=== PATIENT | female | born 1950 | race Caucasian/White ===

== ENCOUNTER → 2017-03-26 11:13 | Outpatient (CLI) | payer MEDICARE, OTHER | END | disposition home or self-care (01) | LOC: D.MRI 11:13 | DX: R53.1 Weakness (principal); R20.2 Paresthesia of skin; M54.16 Radiculopathy, lumbar region ==

== ENCOUNTER → 2017-09-16 12:25 | Outpatient (CLI) | payer MEDICARE, OTHER ==
--- NOTE | ~2017-09-16 | EC ---
PATIENT:SHANA WILLIS DATE OF SERVICE: 09/16/17 SEX: F MEDICAL RECORD: [id number] DATE OF : [birth year] LOCATION:[facility] AGE OF PATIENT: 66 ADMISSION DATE: 09/16/17 REFERRING PHYSICIAN: INTERPRETING PHYSICIAN: HADLEY HUGHES MD ECHOCARDIOGRAM REPORT ECHO CHARGES 4 ECHO COMPLETE Date: 09/16 CLINICAL DIAGNOSIS: ABNORMAL EKG/HTN ECHOCARDIOGRAPHIC MEASUREMENTS (adult normal given) AC root (d.<3.7cm) 2.8 cm LV Septum d (<1.2 cm> 1.6 cm Valve Excursion 1.6 cm LV Septum (systole) 1.9 cm Left Atria (s.<4.0cm> 4.6 cm LVPW d(<1.2cm) 1.4 cm RV (d.<2.3cm) 2.4 cm LVPW (sytole) 2.2 cm LV diastole(<5.6CM) 5.1 cm MV E-F(>70mm/sec) cm LV systole 2.5 cm LVOT Diameter 1.7 cm MV exc.(>10mm) cm Est.ejection fraction (50-75%) % DOPPLER: LVIT cm/sec A 73.0 cm/sec E 113 cm/sec LA cm/sec RVSP 28.1 mmHg LVOT 145 cm/sec AOP1/2T m/s Asc. Ao 153 cm/sec RVOT 87.0 cm/sec RA cm/sec PA 115 cm/sec AV Gradient Peak 9.3 mmHg AV Mean 5.9 mmHg AV Area 2.1 cm MV Gradient Peak 5.8 mmHg MV Mean 2.3 mmHg MV Area cm COMMENTS: Radiation Protection Technician: Manuel RANGELOE [employer]munition [employer] I Laborer: Collin Hughes TAPE# PACS Pericardial Effusion N DATE OF SERVICE: PROCEDURE: Transthoracic echocardiogram. FINDINGS: 1. Left ventricle has moderate concentric left ventricular hypertrophy. Inflow characteristics are preserved. 2. The ejection fraction is 65% to 70% and actually hyperdynamic. 3. The left atrium is moderately dilated. 4. The mitral valve appears to be of normal function without significant ECHOCARDIOGRAM REPORT [id number] SHANA WILLIS evidence of mitral regurgitation. 5. The aortic valve is normal with possible trace aortic insufficiency. 6. Tricuspid valve has trace tricuspid regurgitation with normal right ventricular systolic pressures. 7. The right ventricle is normal in size, normal function. 8. The right atrium is normal size, normal function. CONCLUSION: The patient has evidence of hypertensive heart disease with left ventricular hypertrophy, otherwise normal echo for the patient's stated age. TRANSINT:[id number] Voice Confirmation ID: [id number] DOCUMENT ID: [id number] HADLEY HUGHES MD at 0942 CC: [id number] DICTATION DATE: 09/17/17 1006 [employer] ARCHITECT: 09/17/17 1204 DEP CLI 09/16/17 [facility] [address] [place] [address]
[~2017-09-16 12:25] MED LIST: AMBIEN10 MG PO; ASPIRIN EC81 M1 PO; DIOVAN HCT 80-11 TAB PO; NORVASC5 MG PO; SUPER B COMPLE150 MG PO; ULTRAM50 MG PO
== END | disposition home or self-care (01) ==
LOC: D.ECHO 12:25
DX: R94.31 Abnormal electrocardiogram [ECG] [EKG] (principal); I10 Essential (primary) hypertension; G47.10 Hypersomnia, unspecified

== ENCOUNTER → 2017-09-23 16:06 | Outpatient (CLI) | payer MEDICARE, OTHER ==
[2017-09-23 16:55] LABS: THYROID STIMULATING HORMONE 1.15 uIU/mL (0.36-3.74)
== END | disposition home or self-care (01) ==
LOC: D.LABREF 16:06
PROVIDERS: Internal Medicine Cardiovascular Disease
DX: R00.2 Palpitations (principal)

== ENCOUNTER 2018-01-22 05:30 | Day surgery (SDC) | payer MEDICARE, OTHER ==
[2018-01-21 14:18] LABS: HEMATOCRIT 37.3 % (36.0-48.0); HEMOGLOBIN 12.5 g/dL (12-16); MCH 30.9 pg (26.0-34.0); MCHC 33.5 g/dL (31.0-37.0); MCV 92.1 fL (80.0-100.0); MEAN PLATELET VOLUME 9.8 fL (7.4-10.4); RBC 4.05 10x6/uL (4.00-5.40); RDW 12.9 % (11.5-14.5); WBC 7.3 10x3/uL (4.8-10.8)
[~2018-01-22] VITALS: Ht 170.2 cm; Wt 81.6 kg
--- NOTE | ~2018-01-22 | OP ---
PATIENT NAME: SHANA WILLIS MEDICAL RECORD: [id number] :52 LOCATION:[facility] ADMISSION DATE: SURGEON: SANTI JORDAN MD DATE OF OPERATION: 01/22/2018 PREOPERATIVE DIAGNOSES: Lumbar spinal stenosis and disc protrusion, L4-L5, left. POSTOPERATIVE DIAGNOSES: Synovial cyst L4-L5 on the left with hypertrophied ligamentum flavum causing foraminal stenosis, lumbar spinal stenosis, L4-L5, left; disc protrusion L4-L5, left. PROCEDURES: Lumbar laminotomy, medial facetectomy and foraminotomy at L4-L5 on the left. DESCRIPTION AND TECHNIQUE: After induction of general endotracheal anesthesia, the patient was rolled prone on Prabhjot frame. Lumbar spine was prepped and draped in usual sterile fashion. Fluoroscopic x-ray and spinal needle localized the L4-L5 interspace on the left side. A stab incision was created with a #11 blade. Series of dilators were used to advance a METRx retractor to the L4-L5 interspace on the left side. The level was confirmed with fluoroscopic x-ray. A microscope and Midas-Yovanny drill were used to perform laminotomy, medial facetectomy and foraminotomy at L4-L5 on the left. Hypertrophied ligamentum flavum was removed with Cloward rongeurs. There appeared to be a synovial cyst incorporated within the ligamentum flavum, this was removed as well. Following this, the L5 nerve root was decompressed as well. The disc space was inspected and found to have a protrusion, but excellent decompression was accomplished by removal of the ligamentum flavum. Therefore, no discectomy was performed. Meticulous hemostasis was maintained throughout the wound. The wound was irrigated with copious amounts of Ancef irrigant solution. The fascia was closed with 2-0 Vicryl suture, the subdermal layer was closed with 3-0 Vicryl suture. The skin was closed with kwesi. A sterile dressing was applied to the wound. The patient was awakened in good condition, taken to recovery. All counts were reported as correct. Estimated blood loss was minimal. TRANSINT:[id number] Voice Confirmation ID: [id number] DOCUMENT ID: [id number] SANTI JORDAN MD at 1104 CC: [id number] DICTATION DATE: 01/22/18 1323 [employer] SPECIALIST: 01/22/18 1351 [facility] [place] 01/22/18 [facility] [address] [facility] [place] [address]
[2018-01-22 07:38] VITALS: BP 149/68; Ht 170.2 cm; Wt 81.6 kg
[2018-01-22] MEDS ORDERED: TRAMADOL HCL E100 M1 PO (10:28)
== END 2018-01-22 12:00 | disposition home or self-care (01) ==
LOC: D.OPS 05:30 → D.PAN 07:30 → D.OPS 07:30
PROVIDERS: Anesthesiology
DX: M48.061 Spinal stenosis, lumbar region without neurogenic claudication (principal); M51.26 Other intervertebral disc displacement, lumbar region; M71.38 Other bursal cyst, other site; Z01.812 Encounter for preprocedural laboratory examination

== ENCOUNTER 2018-10-08 09:00 | Outpatient (CLI) | payer MEDICARE, OTHER ==
[2018-01-22 07:38] VITALS: BMI 28.2
[~2018-10-08 09:00] MED LIST changes: +TRAMADOL HCL E100 M1 PO
== END 2018-10-08 10:00 | disposition home or self-care (01) ==
LOC: D.MAMMO 09:00
PROVIDERS: ATTEND Family Medicine
DX: Z12.31 Encounter for screening mammogram for malignant neoplasm of breast (principal)

== ENCOUNTER → 2018-10-08 09:36 | Outpatient (CLI) | payer MEDICARE, OTHER ==
[2018-01-22 07:38] VITALS: BMI 28.2
== END | disposition home or self-care (01) ==
LOC: D.MRI 09:36
PROVIDERS: ATTEND Family Medicine
DX: M54.10 Radiculopathy, site unspecified (principal)

== ENCOUNTER → 2019-01-05 12:36 | Outpatient (CLI) | payer MEDICARE, OTHER ==
[2018-01-22 07:38] VITALS: BMI 28.2
== END | disposition home or self-care (01) ==
LOC: D.MRI 12:36
PROVIDERS: ATTEND Orthopaedic Surgery
DX: S83.242A Other tear of medial meniscus, current injury, left knee, initial encounter (principal)

== ENCOUNTER → 2019-02-23 09:57 | Outpatient (CLI) | payer MEDICARE, OTHER ==
[2018-01-22 07:38] VITALS: BMI 28.2
== END | disposition home or self-care (01) ==
LOC: D.RAD 09:57
PROVIDERS: ATTEND Family Medicine
DX: M54.16 Radiculopathy, lumbar region (principal)

== ENCOUNTER → 2020-02-02 10:32 | Outpatient (CLI) | payer MEDICARE, OTHER ==
[2018-01-22 07:38] VITALS: BMI 28.2
--- NOTE | 2020-02-04 11:00 | EC ---
PATIENT:SHANA WILLIS DATE OF SERVICE: 02/02/20 SEX: F MEDICAL RECORD: [id number] DATE OF : [birth year] LOCATION:[facility] AGE OF PATIENT: 69 ADMISSION DATE: 02/02/20 REFERRING PHYSICIAN: INTERPRETING PHYSICIAN: BALWINDER FINLEY MD ECHOCARDIOGRAM REPORT ECHO CHARGES 4 ECHO COMPLETE Date: 02/02/20 CLINICAL DIAGNOSIS: HTN/HEART MURMUR ECHOCARDIOGRAPHIC MEASUREMENTS (adult normal given) AC root (d.<3.7cm) 3.0 cm LV Septum d (<1.2 cm> 1.3 cm Valve Excursion 1.5 cm LV Septum (systole) 1.5 cm Left Atria (s.<4.0cm> 4.6 cm LVPW d(<1.2cm) 1.5 cm RV (d.<2.3cm) 2.8 cm LVPW (sytole) 1.7 cm LV diastole(<5.6CM) 5.6 cm MV E-F(>70mm/sec) cm LV systole 3.9 cm LVOT Diameter 1.9 cm MV exc.(>10mm) 2.1 cm Est.ejection fraction (50-75%) % DOPPLER: LVIT cm/sec A 84.0 cm/sec E 72.0 cm/sec LA cm/sec RVSP 31 mmHg LVOT 118 cm/sec AOP1/2T m/s Asc. Ao 156 cm/sec RVOT 100 cm/sec RA cm/sec PA 115 cm/sec AV Gradient Peak 9.79 mmHg AV Mean 5.74 mmHg AV Area 2.0 cm MV Gradient Peak 3.87 mmHg MV Mean 1.64 mmHg MV Area cm COMMENTS: Parachutist/Combatant Diver Qualified: 2 DARIN GRANDE Reporter Anchor: 3 Dr. Smiley TAPE# PACS Pericardial Effusion N DATE OF SERVICE: Adequate 2D, color-flow imaging, spectral Doppler, and M-Mode LVH is present. LV internal dimension is normal. Wall motion is normal. EF is greater than or equal to 55%. Aortic valve is tricuspid. No evidence of stenosis. There is trace AI with color-flow imaging. Left atrium is dilated at 4.6 cm. Mitral valve shows no prolapse. Trace MR. Right-sided chambers are grossly normal. Mild TR. ECHOCARDIOGRAM REPORT [id number] SHANA WILLIS TRANSINT:[id number] Voice Confirmation ID: [id number] DOCUMENT ID: [id number] BALWINDER FINLEY MD at 1100 CC: [id number] DICTATION DATE: 02/03/20 0843 LEGAL ADVISER: 02/03/20 1315 DEP CLI 02/02/20 [place] [id number] [place] [id number]
== END | disposition home or self-care (01) ==
LOC: D.HCCECHO 10:30
PROVIDERS: ATTEND Internal Medicine Interventional Cardiology
DX: I10 Essential (primary) hypertension (principal)

== ENCOUNTER 2020-11-02 10:15 | Outpatient (CLI) | payer MEDICARE, OTHER ==
[2020-04-28 12:36] VITALS: BMI 27.4
[~2020-11-02 10:15] MED LIST changes: +BENICAR HCT 201 EAC1 PO; +HYDROCODON-ACE1 EA10 PO; +IBANDRONATE SO150 MG PO; +MEDROL DOSE PACK4 MG PO; +VITAMIN D5000 UNI2 PO
== END 2020-11-02 10:45 | disposition home or self-care (01) ==
LOC: D.MAMMO 10:15
PROVIDERS: ATTEND Family Medicine
DX: Z12.31 Encounter for screening mammogram for malignant neoplasm of breast (principal); E21.3 Hyperparathyroidism, unspecified